=== PATIENT | female | born 1950 | race Asian ===

== ENCOUNTER 2018-11-27 12:35 | Inpatient (IN) | payer MEDICARE, MEDICAID ==
[~2018-11-27] VITALS: Ht 165.1 cm; Wt 66.2 kg
[2018-11-27 16:04] VITALS: BP 115/65
[2018-11-27 16:45] VITALS: BP 115/65
--- NOTE | 2018-11-27 16:46 | NUR ---
GPS RN ADMITTING NOTE: PT 68 Y/O FEMALE ADMITTED FROM [facility]. PT ON 5150 HOLD FOR DTO,GD. PER HOLD PT PT DEPRESSED, PARANOID,ANGRY THINKS DAUGHTER IS CONTROLLING HER AND WITHHOLDING HER MEDICATIONS.UPON FACE TO FACE ASSESSMENT , PT NOTED DEPRESSED MOOD COOPERATIVE, A/OX3, AMBULATORY, DENIES SI/HI. VSS NO S/S DISTRESS NOTED FLAT AFFECT.PT HAS HX SCHIZOPHRENIA OA. INSOMNIA ,HLD,DEMENTIA .DR KAT NOTIFIED WITH STANDING ORDER PLACED.PT SKIN INTACT AND CLEAN. MRSA DONE,PT DAUGHTER NOTIFIED WILL CONTINUE MONITORING FOR SAFETY AND BEHAVIOR Q 15 MIN . INDORSE TO INCOMING SHIFT RN FOR CONTINUATION OF CARE.
[2018-11-27] MEDS ORDERED: MAGNESIUM HYDROXIDE 30 ML UDC PO PRN (17:00)
[2018-11-27] MEDS ORDERED: MAG HYDROX/AL HYDROX/SIMETH 30 ML UDC PO PRN (17:00)
[2018-11-27] MEDS ORDERED: ACETAMINOPHEN 325 MG TABLET PO PRN (17:00)
[2018-11-27] MEDS ORDERED: BLOOD SUGAR DIAGNOSTIC 1 EACH STRIP IN ONE (17:00)
[2018-11-27] MEDS ORDERED: CYCL30DR EACHEYE (17:58)
[2018-11-27] MEDS ORDERED: OLAN10TA3 PO (17:58)
[2018-11-27] MEDS ORDERED: PANT40TA4 PO (17:58)
[2018-11-27] MEDS ORDERED: TRAZ-214 PO (17:58)
[2018-11-27] MEDS ORDERED: ATOR10TA PO (17:58)
[2018-11-27] MEDS ORDERED: SERT100T12 PO (17:58)
[2018-11-27] MEDS ORDERED: BECL10.62 IH (18:02)
[2018-11-27 19:48] VITALS: BP 113/58
[2018-11-27 22:00] VITALS: BP 115/61
[2018-11-27] MEDS: ARIPIPRAZOLE 5 MG TABLET PO SCH (22:12)
[2018-11-27] MEDS: MIRTAZAPINE 15 MG TABLET PO SCH (22:12)
--- NOTE | 2018-11-27 22:14 | NUR ---
RN NOTES FAXED 's MED ORDERS/MED CONSENT TO PHARMACY BUT THEY DID NOT VERIFY BEFORE THEY LEFT. HAD TO RESEND THE CONSENT FORM TO THE NIGHT PHARMACY TO VERIFY MEDS, WHICH IS WHY ABILIFY WAS GIVEN AT A LATER TIME.
--- NOTE | 2018-11-27 22:15 | NUR ---
RN NOTES Pt's TOOK Pt's [employer] HOME.
[2018-11-28 07:41] LABS: ALBUMIN 3.6 g/dL (3.4-5.0); BILIRUBIN,TOTAL 0.5 mg/dL (0.2-1.0); CALCIUM, SERUM 8.6 mg/dL (8.5-10.1); CREATININE 0.7 mg/dL (0.6-1.3); POTASSIUM 3.5 mmol/L (3.5-5.1); TOTAL PROTEIN, SERUM 7.2 g/dL (6.4-8.2)
[2018-11-28] MEDS: ARIPIPRAZOLE 5 MG TABLET PO SCH ×2 (07:43→21:14)
[2018-11-28 07:44] LABS: CHOLESTEROL 143 mg/dL (<200); HDL CHOLESTEROL 49 mg/dL (40-60); LDL 79 mg/dL (0-99); TRIGLYCERIDES 105 mg/dL (30-150)
[2018-11-28 08:00] VITALS: BP 109/73
[2018-11-28] MEDS: DIVALPROEX SODIUM 250 MG TABLET.DR PO SCH ×3 (08:47→16:35)
[2018-11-28] MEDS: FLUVOXAMINE MALEATE 50 MG TABLET PO SCH ×3 (08:47→16:34)
--- NOTE | 2018-11-28 15:34 | NUR ---
GROUP NOTE: SW encouraged pt to participate in group on this present day discussing "discharge planning." Pt was asleep and not easily aroused.
[2018-11-28 16:00] VITALS: BP 117/74
[2018-11-28 20:24] VITALS: BP 111/73
[2018-11-28] MEDS: LORAZEPAM 0.5 MG TABLET PO PRN (21:11)
[2018-11-28] MEDS: MIRTAZAPINE 15 MG TABLET PO SCH (21:12)
[2018-11-29 08:00] VITALS: BP 125/76
[2018-11-29] MEDS: FLUVOXAMINE MALEATE 50 MG TABLET PO SCH ×3 (08:05→17:13)
[2018-11-29] MEDS: DIVALPROEX SODIUM 250 MG TABLET.DR PO SCH ×3 (08:05→17:13)
[2018-11-29] MEDS: ARIPIPRAZOLE 5 MG TABLET PO SCH ×2 (08:05→21:10)
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
--- NOTE | 2018-11-29 11:18 | NUR ---
INITIAL DISCHARGE PLAN: Per Daughter Lorenza [phone] pt will return back home [address] [address]. SW will help form a safe and proper discharge in collaboration with .
--- NOTE | 2018-11-29 13:22 | NUR ---
RIGOBERTO faxed referral to [facility] Address: [address], [place] [address] .
--- NOTE | 2018-11-29 15:25 | NUR ---
GROUP NOTE: SW encouraged pt to participate in group on this present day discussing "positive coping skills." Pt was asleep and not easily aroused.
[2018-11-29 16:00] VITALS: BP 100/63
[2018-11-29] MEDS: ATORVASTATIN 10 MG TABLET PO SCH (17:13)
[2018-11-29 20:23] VITALS: BP 98/60
[2018-11-29] MEDS: LORAZEPAM 0.5 MG TABLET PO PRN (21:10)
[2018-11-29] MEDS: MIRTAZAPINE 15 MG TABLET PO SCH (21:10)
[2018-11-30 08:00] VITALS: BP 123/76
[2018-11-30] MEDS: FLUTICASONE/VILANTEROL 1 EACH BLST.W.DEV IH SCH (08:32)
[2018-11-30] MEDS: ARIPIPRAZOLE 5 MG TABLET PO SCH ×2 (08:32→21:13)
[2018-11-30] MEDS: FLUVOXAMINE MALEATE 50 MG TABLET PO SCH ×4 (08:32→21:13)
[2018-11-30] MEDS: DIVALPROEX SODIUM 250 MG TABLET.DR PO SCH ×3 (08:32→16:49)
[2018-11-30] MEDS: PANTOPRAZOLE 40 MG TABLET.DR PO SCH (08:32)
--- NOTE | 2018-11-30 15:41 | NUR ---
Group Note: SW encouraged pt to participate in group on 11/30/18 at 2pm discussing discharge planning. Pt was in her room and she stated that she did not want to participate in group therapy. SW stated that her discharge plan is to go back home and that her SW will inform her when that would be.
[2018-11-30 16:00] VITALS: BP 118/73
[2018-11-30] MEDS: ATORVASTATIN 10 MG TABLET PO SCH (17:11)
[2018-11-30 20:16] VITALS: BP 124/72
[2018-11-30] MEDS: MIRTAZAPINE 15 MG TABLET PO SCH (21:13)
[2018-12-01] MEDS ORDERED: NORM126S2 BNOSTRILS (04:04)
[2018-12-01 08:00] VITALS: BP 113/60
[2018-12-01] MEDS: PANTOPRAZOLE 40 MG TABLET.DR PO SCH (08:42)
[2018-12-01] MEDS: FLUVOXAMINE MALEATE 50 MG TABLET PO SCH ×3 (08:42→22:16)
[2018-12-01] MEDS: ARIPIPRAZOLE 5 MG TABLET PO SCH ×2 (08:42→22:16)
[2018-12-01] MEDS: DIVALPROEX SODIUM 250 MG TABLET.DR PO SCH ×3 (08:42→16:20)
[2018-12-01] MEDS: FLUTICASONE/VILANTEROL 1 EACH BLST.W.DEV IH SCH (08:44)
--- NOTE | 2018-12-01 15:46 | NUR ---
Group Note: SW encouraged pt to participate in group on 12/01/18 at 2pm discussing social supports. Pt was in her room and she stated that she did not want to participate in group therapy. Pt stated that she has family that are her support systems.
[2018-12-01 16:00] VITALS: BP 97/58
[2018-12-01] MEDS: ATORVASTATIN 10 MG TABLET PO SCH (18:04)
[2018-12-01 20:08] VITALS: BP 122/76
[2018-12-01 20:11] VITALS: BP 122/76
[2018-12-01] MEDS: MIRTAZAPINE 15 MG TABLET PO SCH (22:15)
[2018-12-01] MEDS: TEMAZEPAM 15 MG CAPSULE PO PRN (22:15)
[2018-12-02 08:00] VITALS: BP 127/74
[2018-12-02] MEDS: PANTOPRAZOLE 40 MG TABLET.DR PO SCH (09:18)
[2018-12-02] MEDS: clonazePAM 0.5 MG TABLET PO SCH ×3 (09:19→17:18)
[2018-12-02] MEDS: ARIPIPRAZOLE 5 MG TABLET PO SCH ×2 (09:19→21:21)
[2018-12-02] MEDS: FLUVOXAMINE MALEATE 50 MG TABLET PO SCH ×3 (09:19→21:22)
[2018-12-02] MEDS: DIVALPROEX SODIUM 250 MG TABLET.DR PO SCH ×3 (09:19→17:22)
--- NOTE | 2018-12-02 15:00 | NUR ---
GROUP NOTE: SW encouraged pt to participate in group on this present day discussing "substance abuse issues." Pt refused to participate, pt appeared paranoid and just shuck her head saying "no no no." Pt was laying in bed with her blanket covering her face and only her eyes being exposed.
[2018-12-02] MEDS: FLUTICASONE/VILANTEROL 1 EACH BLST.W.DEV IH SCH (15:57)
[2018-12-02 16:00] VITALS: BP 100/56
[2018-12-02] MEDS: ATORVASTATIN 10 MG TABLET PO SCH (17:18)
[2018-12-02 20:23] VITALS: BP 108/69
[2018-12-02] MEDS: MIRTAZAPINE 15 MG TABLET PO SCH (21:21)
[2018-12-02] MEDS: TEMAZEPAM 15 MG CAPSULE PO PRN (22:58)
[2018-12-03 08:00] VITALS: BP 126/72
[2018-12-03] MEDS: DIVALPROEX SODIUM 250 MG TABLET.DR PO SCH ×3 (08:44→16:42)
[2018-12-03] MEDS: ARIPIPRAZOLE 5 MG TABLET PO SCH ×2 (08:44→21:00)
[2018-12-03] MEDS: PANTOPRAZOLE 40 MG TABLET.DR PO SCH (08:44)
[2018-12-03] MEDS: clonazePAM 0.5 MG TABLET PO SCH ×2 (08:44→13:38)
[2018-12-03] MEDS: FLUVOXAMINE MALEATE 50 MG TABLET PO SCH ×3 (08:44→21:00)
[2018-12-03] MEDS: FLUTICASONE/VILANTEROL 1 EACH BLST.W.DEV IH SCH (08:47)
--- NOTE | 2018-12-03 10:00 | NUR ---
GPS/RN-NOTES REHAB TRAINER PRISCA SEEN PATIENT WITH VERBAL ORDER OF NASAL SPRAY Q6HR PRN AND ARTIFICIAL TEARS BID.NOTED AND CARRIED OUT.
[2018-12-03] MEDS ORDERED: clonazePAM 0.5 MG TABLET PO PRN (14:00)
[2018-12-03 16:00] VITALS: BP 117/76
[2018-12-03] MEDS: ATORVASTATIN 10 MG TABLET PO SCH (17:30)
[2018-12-03] MEDS ORDERED: SALINE NASAL SPRAY 0.65% 1 BOTTLE BOTTLE NS PRN (19:00)
[2018-12-03] MEDS ORDERED: POLYVINYL ALCOHOL 15 ML BOTTLE EACHEYE PRN (19:00)
[2018-12-03 20:08] VITALS: BP 108/63
[2018-12-03] MEDS: MIRTAZAPINE 15 MG TABLET PO SCH (21:00)
[2018-12-03] MEDS: TEMAZEPAM 15 MG CAPSULE PO PRN (21:35)
[2018-12-04 08:20] VITALS: BP 118/57
[2018-12-04] MEDS: DIVALPROEX SODIUM 250 MG TABLET.DR PO SCH ×3 (08:50→16:24)
[2018-12-04] MEDS: ARIPIPRAZOLE 5 MG TABLET PO SCH ×2 (08:50→21:07)
[2018-12-04] MEDS: FLUVOXAMINE MALEATE 50 MG TABLET PO SCH ×3 (08:50→21:07)
[2018-12-04] MEDS: PANTOPRAZOLE 40 MG TABLET.DR PO SCH (08:53)
[2018-12-04] MEDS: FLUTICASONE/VILANTEROL 1 EACH BLST.W.DEV IH SCH (09:05)
[2018-12-04] MEDS: POLYVINYL ALCOHOL 15 ML BOTTLE EACHEYE SCH ×2 (09:12→16:35)
[2018-12-04 16:20] VITALS: BP 114/67
[2018-12-04] MEDS: ATORVASTATIN 10 MG TABLET PO SCH (17:18)
[2018-12-04 20:01] VITALS: BP 106/68
[2018-12-04] MEDS: MIRTAZAPINE 15 MG TABLET PO SCH (21:06)
[2018-12-04] MEDS: TEMAZEPAM 15 MG CAPSULE PO PRN (21:50)
[2018-12-05 08:00] VITALS: BP 110/67
[2018-12-05] MEDS: DIVALPROEX SODIUM 250 MG TABLET.DR PO SCH ×3 (08:33→16:16)
[2018-12-05] MEDS: FLUVOXAMINE MALEATE 50 MG TABLET PO SCH ×3 (08:33→23:35)
[2018-12-05] MEDS: ARIPIPRAZOLE 5 MG TABLET PO SCH ×2 (08:33→23:34)
[2018-12-05] MEDS: PANTOPRAZOLE 40 MG TABLET.DR PO SCH (08:33)
[2018-12-05] MEDS: POLYVINYL ALCOHOL 15 ML BOTTLE EACHEYE SCH ×2 (08:34→16:15)
[2018-12-05] MEDS: FLUTICASONE/VILANTEROL 1 EACH BLST.W.DEV IH SCH (08:35)
--- NOTE | 2018-12-05 11:06 | NUR ---
SW contacted pts Daughter Lorenza [phone] and left voicemail to return call to coordinate discharge.
--- NOTE | 2018-12-05 11:47 | NUR ---
RIGOBERTO contacted pts Daughter Lorenza [phone] who stated she will be picking pt up at 6:00pm on Wednesday12/06/18 and transporting home.
[2018-12-05 16:00] VITALS: BP 116/73
[2018-12-05] MEDS: ATORVASTATIN 10 MG TABLET PO SCH (17:01)
[2018-12-05 20:17] VITALS: BP 150/82
[2018-12-05] MEDS: MIRTAZAPINE 15 MG TABLET PO SCH (23:36)
[2018-12-06 08:00] VITALS: BP 149/74
[2018-12-06] MEDS: DIVALPROEX SODIUM 250 MG TABLET.DR PO SCH ×2 (09:07→12:32)
[2018-12-06] MEDS: PANTOPRAZOLE 40 MG TABLET.DR PO SCH (09:07)
[2018-12-06] MEDS: FLUVOXAMINE MALEATE 50 MG TABLET PO SCH ×2 (09:07→12:32)
[2018-12-06] MEDS: ARIPIPRAZOLE 5 MG TABLET PO SCH (09:07)
[2018-12-06] MEDS: FLUTICASONE/VILANTEROL 1 EACH BLST.W.DEV IH SCH (09:08)
[2018-12-06] MEDS: POLYVINYL ALCOHOL 15 ML BOTTLE EACHEYE SCH (09:10)
--- NOTE | 2018-12-06 11:12 | NUR ---
DISCHARGE NOTE: Pt will be discharged via private vehicle at 4:00pm home [address] [facility] [address]. Pts Daughter oLrenza [phone] will be picking pt up and transporting home. Pts mood is euthymic with congruent affect. Pt denied visual/auditory hallucinations and denied suicidal/homicidal ideation. Per daughter she will schedule a follow up appointment with psychiatrist Dr. Herrera at [facility] Address: [address] [place] [address] [place] [address] and pt will follow up with Dispatcher Service: Dr. Leandro Kemp Address: [address] [place] [address] [place] [address] . The multidisciplinary exit care form was done, printed, signed, and given to the patient.
[2018-12-06 16:00] VITALS: BP 124/72
--- NOTE | 2018-12-06 16:15 | NUR ---
GPS/RN-NOTES PATIENT DISCHARGE TO HOME TODAY. DR. KAT AND ALLY GUARDADO AWARE AND AGREED OF THE DISCHARGE WITH ORDERS. ALL DISCHARGE MEDICATIONS WAS REVIEWED WITH THE PATIENT AND AT BEDSIDE WITH UNDERSTANDING. RX WAS GIVEN TO THE AND ALL HER BELONGINGS INCLUDING OWN MEDICATIONS. PATIENT DID NOT VERBALIZE SI/HI,DENIES VISUAL/AUDITORY HALLUCINATIONS AT THE TIME OF DISCHARGE. INSTRUCTED PATIENT TO CALL 911 OR GO TO THE NEAREST EMERGENCY ROOM IN -CASE OF EMERGENCY.PATIENT LEFT THE UNIT IN STABLE CONDITION ALERT ORIENTED X3 AMBULATORY WITH STEADY GAIT. COMPLAINT ANALYST BY AND SHARON FUNEZ VIA PRIVATE CAR PATIENT WAS ASSISTED BY THE STEMHOLE BORER AND TOPPER IN THE LOBBY FOR SAFETY.
== END 2018-12-06 16:15 | disposition home or self-care (01) | DRG 885 ==
LOC: GPS 15:20
PROVIDERS: ADMIT Psychiatry & Neurology Psychiatry
DX: F25.9 Schizoaffective disorder, unspecified (principal); G21.19 Other drug induced secondary parkinsonism; F41.9 Anxiety disorder, unspecified; E78.5 Hyperlipidemia, unspecified; G25.0 Essential tremor; I10 Essential (primary) hypertension; I25.10 Atherosclerotic heart disease of native coronary artery without angina pectoris; F32.9 Major depressive disorder, single episode, unspecified; K21.9 Gastro-esophageal reflux disease without esophagitis; Z91.14 Patient's other noncompliance with medication regimen; M85.80 Other specified disorders of bone density and structure, unspecified site; M54.10 Radiculopathy, site unspecified; F02.80 Dementia in other diseases classified elsewhere, unspecified severity, without behavioral disturbance, psychotic disturbance, mood disturbance, and anxiety
CPT/HCPCS: 36415; 80053-TC; 80061-TC; 80164-TC; 82962-TC; 87081-TC